=== PATIENT | male | born 1955 | race Caucasian/White ===

== ENCOUNTER 2017-05-21 11:06 | Emergency (ER) | payer OTHER ==
[~2017-05-21] VITALS: Ht 167.6 cm; Wt 113.4 kg
[2017-05-21] MEDS ORDERED: ZANTAC 150MG T150 MG PO (11:14)
[2017-05-21] MEDS ORDERED: Q10 (11:14)
[2017-05-21] MEDS ORDERED: AMIODARONE HCL100 MG PO (11:15)
[2017-05-21] MEDS ORDERED: XARELTO10 MG PO (11:15)
[2017-05-21] MEDS ORDERED: CILOSTAZOL50 MG PO (11:15)
[2017-05-21] MEDS ORDERED: PLAVIX 75 MG TA75 M1 PO (11:16)
[2017-05-21] MEDS ORDERED: METFORMIN HCL500 MG PO (11:16)
[2017-05-21] MEDS ORDERED: BENADRYL25 MG PO (11:16)
[2017-05-21] MEDS ORDERED: LOPRESSOR50 MG PO (11:16)
[2017-05-21] MEDS ORDERED: PERCOCET 5-3251 EACH PO (13:15)
[2017-05-21] MEDS ORDERED: KEFLEX500 M1 PO (13:15)
[2017-05-21 14:19] VITALS: BP 94/48
--- NOTE | 2017-05-28 06:50 | CON ---
[address] [address] CONSULTATION Name: WHITNEY PACKER Room: [facility] Racheal#: [id number] Admission: 05/21/17 Attend Phys: Discharge: 05/21/17 Date of : 57 Report #: [id number] THIS REPORT FOR: //name// CC: Elmer Gautam DATE OF SERVICE: 05/21/2017 HISTORY OF PRESENT ILLNESS: The patient is a 62-year-old right-hand dominant gentleman who had an injury to his left hand while using a wood splitter today. The patient presented to this Emergency Room for definitive care and treatment of injuries to the small finger and the ring finger of his left hand, which is his nondominant extremity. He has had some immediate pain and swelling. The patient appropriately was evaluated by the Emergency Room physicians, had x-rays taken of this and the ends of the fingers were cleaned and blocked with lidocaine. The patient never had major injury to these 2 fingers in the past, but he has had other hand injuries in the past. The patient did have a radiograph taken of the left hand, showing that he has a distal phalanx fracture of the small finger. The patient did not have any major fractures that are seen or dislocations. ALLERGIES: He does demonstrate MULTIPLE ALLERGIES to ASPIRIN, MORPHINE, PENICILLIN WHICH CAUSED HIM TO HAVE SOME SWELLING and he has COMPAZINE ALLERGY as well. MEDICATIONS: He is on medications that include Zantac, Xarelto, amiodarone, metformin, Lopressor, some Benadryl, recently received Keflex in the Emergency Room and recently received a Percocet pill as well. PAST MEDICAL HISTORY: Some cardiac disease with some hypertension and diabetes mellitus. PAST SURGICAL HISTORY: At this point in time, he does not admit to any major surgery history. REVIEW OF SYMPTOMS: MUSCULOSKELETAL: He just complains about the left hand pain; otherwise, unremarkable. PHYSICAL EXAMINATION: GENERAL: He is very pleasant, alert, oriented, cooperative with appropriate affect and judgment, 62 year old male. HEENT: Normocephalic. Sclerae white. Mucous membranes are moist. LUNGS: He has no audible wheezes detected. UPPER EXTREMITIES: He has obviously amputation through the distal one-half of the phalanx region that took off the distal part [place] [address] CONSULTATION Name: WHITNEY PACKER [id number] Admission: 05/21/17 Attend Phys: Discharge: 05/21/17 Date of : 57 Report #: [id number] patient also has a laceration of 2 cm to the ring finger, most ulnar side. His sensation is definitely intact and this was also demonstrated by the Emergency Room physician. The patient's x-ray correlates with the amputation through the distal phalanx region of this left small finger. 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 He says this is chronic in nature, but he has subungual hematoma that is evident today as well. On examination otherwise it is totally unremarkable. PLAN: I had a lengthy discussion with this gentleman. I could do V-Y flap to the small finger, which would appropriately cover that distal phalanx up and I would have to only remove a small amount of distal phalanx to get this accomplished and he agreed. The gentleman understands that usually these flaps survive and do quite well, although there is always a real possibility that he could have some necrosis from this crush injury that could let them not heal. As far as the ring finger goes that could simply be repaired, but I would like to remove his nail and make sure he does not have a nail bed injury since he has that subungual hematoma as well and he agreed to that. At this point in time, the patient did have a sterile cleansing of his left hand region. The digital block was still in, appropriately applied and he does not have any gross sensation to the fingers. A tourniquet was placed across the base of the small finger. Initially, I did remove a small amount and rongeured back the distal phalanx tip. The entire bare subcutaneous tissue that was evident, I did a volar V-Y flap using a 15 blade scalpel. I advanced it over and tied it down to the remaining distal phalanx and had nice complete coverage of this fingertip amputation now. I loosely closed the remaining aspect of this finger surgical site with 4-0 and 3-0 nylon in a simple fashion. The ring finger was inspected and both these surgeries were done under loupe magnification and I completely cleansed out that laceration across the ring finger, closed it with 4-0 nylon in simple fashion. Sterile Xeroform, tube gauze dressing was applied to the small finger and the ring finger with a small Michelle dressing was applied. He was given a script for Keflex for 5 days and would be followed up in the orthopedic office in 1 week. I will be happy to see this gentleman at any point in time, sooner if there are any questions or concerns. As always it is our pleasure seeing and taking care of this patient as well as any other patients in the Emergency Room. He tolerated the procedure quite well. <ELECTRONICALLY SIGNED> By: Damian Spear DO 05/28/17 [id number] cynthia Babin
== END 2017-05-21 14:19 | disposition home or self-care (01) ==
LOC: M.ERS 11:06
DX: S68.117A Complete traumatic metacarpophalangeal amputation of left little finger, initial encounter (principal); Z88.0 Allergy status to penicillin; Z88.5 Allergy status to narcotic agent; Z88.8 Allergy status to other drugs, medicaments and biological substances; W22.8XXA Striking against or struck by other objects, initial encounter; Y93.89 Activity, other specified; Y92.89 Other specified places as the place of occurrence of the external cause; Y99.8 Other external cause status